=== PATIENT | male | born 1970 | race Caucasian/White ===

== ENCOUNTER 2024-02-01 10:25 | Emergency (ER) | payer SELFPAY ==
[2024-02-01] MEDS ORDERED: Diazepam 10 MG/2 ML SYRINGE ONE (11:05)
[2024-02-01 11:10] LABS: Analyzer IN Cardio CS ER; Base Excess (BEa) 3.2 mEq/L (-2.0 to +3.0); CO2 Tension 69.6 mmHg (35.0-45.0); Calcium, Ionized (arterial) 1.14 mmol/L (1.12-1.30); Carboxyhemoglobin (COHb) 2.7 gm% (0.0-3.0); Hematocrit-ABG 39 % (42.0-52.0); Hemoglobin (Hb) 13.4 g/dL (14.0-18.0); O2 Tension (PaO2), arterial 53.9 mmHg (80.0-100.0); Potassium - ABG Lab 4.44 mmol/L (3.70-5.30); Puncture Site Right Radial artery
[2024-02-01] MEDS ORDERED: Iopamidol 300 61% 100 ML VIAL FS ONE (11:11)
[2024-02-01 11:24] LABS: #Basophils 0.01 10x3/uL (0.0-0.2); #Eosinphils 0.01 10x3/uL (0.0-0.5); #Monocytes 0.35 10x3/uL (0.0-1.1); #Neutrophils 9.82 10x3/uL (1.5-8.4); %Basophils 0.1 % (0.0-2.0); %Eosinophils 0.1 % (0.0-6.0); %Monocytes 3.3 % (0.0-10.0); %Neutrophils 93.2 % (40.0-75.0); Hematocrit 41.9 % (38.8-50.0); Hemoglobin 12.3 g/dL (13.5-17.5); Mean Corpuscular HGB CONC 29.4 g/dL (32.0-36.0); Mean Corpuscular Hemoglobin 28.4 pg (27.0-33.0); Mean Corpuscular Volume 96.8 fL (81.2-95.1); Mean Platelet Volume 11.4 fL (7.4-10.4); Platelet Count 193 10x3/uL (150-450); RBC Distribution Width 15.1 % (11.5-14.5); Red Blood Cell (RBC) Count 4.33 10x6/uL (4.32-5.72); White Blood Cell (WBC) Count 10.5 10x3/uL (3.5-10.5)
[2024-02-01 11:34] LABS: ALT (SGPT) 15 U/L (8-55); AST (SGOT) 17 U/L (5-34); Albumin 3.8 g/dL (3.5-5.0); Alkaline Phosphatase 75 U/L (40-110); Anion Gap 17 mmol/L (10-20); BUN (Urea Nitrogen) 21 mg/dL (8.4-25.7); Bilirubin, Total Less than 0.2 mg/dL (0.2-1.2); CK (CPK) 125 U/L (30-200); Calc. Creatinine Clearance 0 mL/min (70-130); Carbon Dioxide 32 mmol/L (22-29); Chloride 100 mmol/L (98-107); Estimated GFR 90; Globulin 2.7 g/dL (2.4-3.5); Glucose 140 mg/dL (70-105); Potassium 4.5 mmol/L (3.5-5.1); Protein, Total 6.5 g/dL (6.0-8.3); Sodium 144 mmol/L (136-145)
[2024-02-01 11:35] LABS: Acetaminophen Less than 10 mcg/mL (Less than 10); Alcohol Less than 10.0 mg/dL (Less than 10); Magnesium 2.2 mg/dL (1.6-2.6); Salicylate Less than 8.0 mg/dL (Less than 8.0)
[2024-02-01 11:38] LABS: Troponin I 0.023 ng/mL (< 0.028)
[2024-02-01] MEDS ORDERED: Cefepime 2 GM VIAL ONE (12:03)
[2024-02-01 12:12] LABS: SARS-CoV-2 E Target Negative; SARS-CoV-2 N2 Target Negative; SARS-CoV-2 NAA Rapid Test Not Detected (NotDetected); SARS-CoV-2 RdRP gene Negative
[2024-02-01] MEDS ORDERED: metroNIDAZOLE 500 MG (100 mL) BAG ONE (12:54)
== END 2024-02-01 13:25 | disposition short-term general hospital (02) ==
LOC: CSHERS 10:25
DX: A41.9 Sepsis, unspecified organism (principal); J18.9 Pneumonia, unspecified organism; R65.21 Severe sepsis with septic shock; R25.3 Fasciculation
CPT/HCPCS: 36415; 36600; 71045; 71260; 80053; 80307; 82550; 82805; 83605; 83735; 84484; 85025; 87040; 93005; 96374; 96375; J0692; J3360; Q9967; U0002